=== PATIENT | female | born 1975 | race Caucasian/White ===

== ENCOUNTER → 2021-06-19 09:05 | Outpatient (CLI) | payer OTHER, SELFPAY ==
[2021-06-20 21:29] LABS: SARS-CoV-2 RNA PCR Positive
== END ==
PROVIDERS: PCP Nurse Practitioner Family; Visit Provider Nurse Practitioner Family
DX: U07.1 COVID-19 (principal)
CPT/HCPCS: C9803; U0003; U0005

== ENCOUNTER 2022-09-17 08:23 | Outpatient (CLI) | payer OTHER, SELFPAY ==
--- NOTE | ~2022-09-17 | MM_ITS ---
EXAMINATION: MM screening mamta BI w danae HISTORY: Screening TECHNIQUE: Craniocaudal and mediolateral oblique 3-D tomosynthesis images were obtained and synthetic 2-D images were generated. CAD analysis was submitted and interpreted. COMPARISON: No prior mammogram is available for comparison at this institution. BREAST PARENCHYMAL COMPOSITION: The breasts are almost entirely fatty. FINDINGS: There is a circumscribed mass measuring 1.5 cm in the mid outer aspect of the right breast anteriorly. There are no suspicious masses, calcifications or architectural distortion in the left br east to suggest malignancy. IMPRESSION: 1. Circumscribed right breast mass, mid outer aspect anteriorly measuring 1.5 cm. 2. Recommend comparison to previous outside mammograms. BI-RADS Category 0: Incomplete: Needs additional imaging evaluation. Reviewed, dictated and finalized at location A. IMPRESSION: 1. Circumscribed right breast mass, mid outer aspect anteriorly measuring 1.5 c m. 2. Recommend comparison to previous outside mammograms. BI-RADS Category 0: Incomplete: Needs additional imaging evaluation.
== END 2022-09-17 08:24 | disposition home or self-care (01) ==
LOC: ANHIMG 08:25
PROVIDERS: PCP Nurse Practitioner Family; Visit Provider Nurse Practitioner Family
DX: Z12.31 Encounter for screening mammogram for malignant neoplasm of breast (principal); R92.8 Other abnormal and inconclusive findings on diagnostic imaging of breast
CPT/HCPCS: 77063; 77067

== ENCOUNTER 2022-10-01 11:44 | Outpatient (CLI) | payer OTHER, SELFPAY ==
--- NOTE | ~2022-10-01 | MMUS_ITS ---
EXAMINATION: MM diagnostic mamta RT w danae, US breast RT limited HISTORY: Follow-up right breast mass TECHNIQUE: Additional 3-D tomosynthesis images of the right breast were performed and synthetic 2-D i mages were generated. CAD analysis was submitted and interpreted. High resolution Limited right breas t ultrasound was performed. COMPARISON: 09/17/2022 BREAST PARENCHYMAL COMPOSITION: Breast composition is almost entirely fatty FINDINGS: MAMMOGRAPHIC FINDINGS: There is a circumscribed mass in the lower outer quadrant of the right breast anteriorly. No suspicio us calcifications or architectural distortion. ULTRASOUND: Limited right breast ultrasound: At 9:00, near the nipple there is an oval circumscribed hypoechoic m ass measuring 15 x 10 x 7 mm with posterior acoustic shadowing and marginal vascularity. Parallel bridger entation. IMPRESSION: 1. Solid 15 mm hypoechoic mass of the right breast at 9:00 near the nipple with posterior shadowing. 2. Ultrasound-guided right breast biopsy recommended. BI-RADS category 4, suspicious findings. Reviewed, dictated and finalized at location A. N MERCHANDISER IMPRESSION: 1. Solid 15 mm hypoechoic mass of the right breast at 9:00 near the nipple with posterior shadowing. 2. Ultrasound-guided right breast biopsy recommended. BI-RADS category 4, suspicious findings.
== END 2022-10-01 11:45 | disposition home or self-care (01) ==
LOC: ANHIMG 11:45
PROVIDERS: PCP Nurse Practitioner Family; Visit Provider Nurse Practitioner Family
DX: N63.10 Unspecified lump in the right breast, unspecified quadrant (principal); R92.8 Other abnormal and inconclusive findings on diagnostic imaging of breast
CPT/HCPCS: 76642; 77061; 77065; G0279